=== PATIENT | female | born 1990 | race Hispanic/Latino ===

== ENCOUNTER 2017-07-23 19:20 | Emergency (ER) | payer SELFPAY ==
[2017-07-23] MEDS ORDERED: AZITHROMYCIN 250 MG TABLET PO ONE (19:59)
[2017-07-23] MEDS ORDERED: LIDOCAINE HCL-MPF 1% 2ML VIAL ONE (19:59)
[2017-07-23] MEDS ORDERED: FLUCONAZOLE 100 MG TAB ONE (19:59)
[2017-07-23] MEDS ORDERED: CEFTRIAXONE SODIUM 1 GM ONE (19:59)
[2017-07-23] MEDS ORDERED: ACETAMINOPHEN-CODEINE ELIXIR 5 ML UDCUP ONE (20:00)
[2017-07-23 20:11] LABS: APPEARANCE,URINE Clear (CLEAR); BILIRUBIN,URINE Negative (NEGATIVE); COLOR,URINE Yellow (YELLOW); GLUCOSE, URINE (UA) Negative (NEGATIVE); KETONES,URINE Negative (NEGATIVE); LEUKOCYTE ESTERASE ,URINE Negative (NEGATIVE); NITRATE,URINE Negative (NEGATIVE); OCCULT BLOOD,URINE Moderate (NEGATIVE); PROTEIN,URINE Negative (NEGATIVE); UROBILINOGEN,URINE 0.2 mg/dL (0.2-1.0)
[2017-07-23 20:26] LABS: BACTERIA,URINE Rare /HPF (None Seen); RBC,URINE None Seen /HPF (0-1); SQUAMOUS EPITHELIAL CELL,UR 0-2 /HPF (0-2); WBC,URINE 0-1 /HPF (0-1)
== END 2017-07-23 22:49 | disposition home or self-care (01) ==
LOC: EDH 19:20
DX: N76.0 Acute vaginitis (principal); N72 Inflammatory disease of cervix uteri; N94.89 Other specified conditions associated with female genital organs and menstrual cycle; Z98.890 Other specified postprocedural states
CPT/HCPCS: 76856; 81001; 87210; 87486; 87797; 96372; 99285; J0696; J3490

== ENCOUNTER 2019-02-23 16:32 | Observation (INO) | payer MEDICAID ==
[~2019-02-23] VITALS: Ht 167.6 cm; Wt 114.3 kg
[2019-02-23 17:36] VITALS: BP 123/59
== END 2019-02-23 18:04 | disposition home or self-care (01) ==
LOC: LDH 16:32
PROVIDERS: ADMIT Obstetrics & Gynecology; ATTEND Obstetrics & Gynecology
DX: O36.8931 Maternal care for other specified fetal problems, third trimester, fetus 1 (principal); Z3A.22 22 weeks gestation of pregnancy
CPT/HCPCS: G0378

== ENCOUNTER 2019-05-01 15:41 | Observation (INO) | payer MEDICAID ==
[~2019-05-01] VITALS: Ht 167.6 cm; Wt 117.0 kg
[2019-05-01 17:08] LABS: APPEARANCE,URINE Clear (CLEAR); BILIRUBIN,URINE Negative (NEGATIVE); COLOR,URINE Yellow (YELLOW); GLUCOSE, URINE (UA) Negative (NEGATIVE); KETONES,URINE Negative (NEGATIVE); LEUKOCYTE ESTERASE ,URINE Small (NEGATIVE); NITRATE,URINE Negative (NEGATIVE); OCCULT BLOOD,URINE Negative (NEGATIVE); PROTEIN,URINE Negative (NEGATIVE)
[2019-05-01 17:18] LABS: BACTERIA,URINE Moderate /HPF (None Seen); MUCUS,URINE Few LPF (None Seen); RBC,URINE 0-1 /HPF (0-1); SQUAMOUS EPITHELIAL CELL,UR Many /HPF (0-2)
[2019-05-01] MEDS ORDERED: PHARMACY COMMUNICATION MISC SCH (17:30)
[2019-05-01] MEDS ORDERED: COMPOUND PO MISCELLANEOUS 1 EACH MISC MISC PRN (17:45)
[2019-05-01] MEDS ORDERED: LIDOCAINE HCL 2% VISCOUS 30 ML, MAG HYDROX/AL HYDROX/SIMETH 30 ML, DICYCLOMINE HCL 20 MG PO SCH ×3 (17:45)
[2019-05-01 17:53] LABS: BASOPHILS % (AUTO) 0.1 % (0.0-5.0); EOSINOPHILS % (AUTO) 0.1 % (0.0-8.0); HEMATOCRIT 34.8 % (36-48); MEAN CORPUSCULAR HEMOGLOBIN 30.1 pg (27.0-33.0); MEAN CORPUSCULAR HGB CONC 33.3 g/dL (32.0-36.0); MEAN CORPUSCULAR VOLUME 90.2 fL (79-99); MONOCYTES % (AUTO) 5.2 % (3.0-13.0); NEUTROPHILS % (AUTO) 73.2 % (40.0-77.0); PLATELET COUNT (AUTO) 300 K/uL (130-400); RED BLOOD CELL COUNT(AUTO) 3.86 MIL/uL (4.00-5.50); RED CELL DISTRIBUTION WIDTH 12.1 % (11.0-15.5); WHITE BLOOD COUNT (AUTO) 8.4 K/uL (4.8-10.8)
[2019-05-01 18:05] LABS: CREATININE 0.5 mg/dL (0.5-1.5)
[2019-05-01 18:09] LABS: ALBUMIN 2.7 g/dL (3.5-5.0); BILIRUBIN,TOTAL 0.4 mg/dL (0.2-1.0); TOTAL PROTEIN, SERUM 6.8 g/dL (6.0-8.3)
[2019-05-01] MEDS ORDERED: LACTATED RINGERS 1000ML 1,000 ML IV SCH (21:00)
== END 2019-05-01 22:35 | disposition home or self-care (01) ==
LOC: LDH 15:41
PROVIDERS: ADMIT Obstetrics & Gynecology; ATTEND Obstetrics & Gynecology
DX: O26.893 Other specified pregnancy related conditions, third trimester (principal); R10.9 Unspecified abdominal pain; R42 Dizziness and giddiness; Z3A.31 31 weeks gestation of pregnancy
CPT/HCPCS: 36415; 76705; 80053; 81001; 82150; 83690; 85025; 96360; G0378 ×6; J7120; 96361

== ENCOUNTER 2019-06-16 22:38 | Inpatient (IN) | payer MEDICAID ==
[~2019-06-16] VITALS: Ht 167.6 cm; Wt 123.8 kg
[2019-06-16] MEDS ORDERED: LACTATED RINGERS 1000ML 1,000 ML IV SCH (23:00)
[2019-06-16 23:06] VITALS: BP 158/95
[2019-06-16 23:18] LABS: APPEARANCE,URINE Clear (CLEAR); BILIRUBIN,URINE Negative (NEGATIVE); COLOR,URINE Yellow (YELLOW); GLUCOSE, URINE (UA) Negative (NEGATIVE); KETONES,URINE Negative (NEGATIVE); LEUKOCYTE ESTERASE ,URINE Negative (NEGATIVE); NITRATE,URINE Negative (NEGATIVE); OCCULT BLOOD,URINE Negative (NEGATIVE); PH,URINE 5.5 (5.0-8.0); PROTEIN,URINE Negative (NEGATIVE)
[2019-06-17] MEDS ORDERED: LACTATED RINGERS 1000ML 1,000 ML IV PRN (00:05)
[2019-06-17] MEDS ORDERED: PREN1TAB80 PO (00:11)
[2019-06-17] MEDS ORDERED: ONDA4TAB4 PO (00:11)
[2019-06-17] MEDS ORDERED: MEPERIDINE-PF 50 MG/ML SYG IVP PRN (00:15)
[2019-06-17] MEDS ORDERED: PROMETHAZINE HCL 25 MG/ML 1ML AMPULE IM PRN ×3 (00:15→09:00)
[2019-06-17] MEDS ORDERED: LACTATED RINGERS 1000ML 1,000 ML IV ONE (00:22)
[2019-06-17] MEDS ORDERED: TERBUTALINE SULFATE VIAL 1MG/ML SQ ONE (00:22)
[2019-06-17 00:42] LABS: HEMATOCRIT 35.3 % (36-48); MEAN CORPUSCULAR HEMOGLOBIN 29.8 pg (27.0-33.0); MEAN CORPUSCULAR HGB CONC 33.1 g/dL (32.0-36.0); MEAN CORPUSCULAR VOLUME 90.1 fL (79-99); PLATELET COUNT (AUTO) 302 K/uL (130-400); RED BLOOD CELL COUNT(AUTO) 3.92 MIL/uL (4.00-5.50); RED CELL DISTRIBUTION WIDTH 12.8 % (11.0-15.5); WHITE BLOOD COUNT (AUTO) 10.8 K/uL (4.8-10.8)
[2019-06-17] MEDS ORDERED: CALDOLOR 800MG+NS 250ML 250 ML IV PRN (07:30)
[2019-06-17] MEDS ORDERED: DEXTROSE 5 %-0.45 % NACL 1,000 ML IV PRN ×2 (07:30→09:00)
[2019-06-17] MEDS ORDERED: OXYTOCIN-LR 20 UNITS/1000 ML 1,000 ML IV PRN ×2 (07:30→09:00)
[2019-06-17] MEDS ORDERED: MEPERIDINE-PF 75 MG/ML SYG IM PRN ×2 (07:30→09:00)
[2019-06-17] MEDS ORDERED: CEFAZOLIN SODIUM 1 GM VIAL IVP PRN (07:30)
[2019-06-17] MEDS ORDERED: SODIUM CHLORIDE 0.9% 10 ML VIAL IVP PRN ×2 (07:30→09:00)
[2019-06-17] MEDS ORDERED: CITRIC ACID/SODIUM CITRATE 30 ML UDCUP ONE (07:56)
[2019-06-17] MEDS ORDERED: DURAMORPH PF1 MG/ML 10ML AMP IV ONE (07:58)
[2019-06-17] MEDS ORDERED: CEFAZOLIN SODIUM 1 GM VIAL IVP ONE (08:10)
[2019-06-17] MEDS ORDERED: ONDANSETRON HCL 4 MG/2 ML VIAL ONE (08:27)
[2019-06-17 08:35] LABS: RAPID PLASMA REAGIN NONREACTIVE (NONREACTIVE)
[2019-06-17] MEDS ORDERED: PHENYLEPHRINE HCL 0.5% 15 ML NASAL SPRAY NASAL ONE (08:47)
[2019-06-17] MEDS ORDERED: PHENYLEPHRINE HCL 10 MG/ML 1ML VIAL IV ONE (08:48)
[2019-06-17 10:37] VITALS: BP 110/53
[2019-06-17] MEDS: LORATADINE 10 MG TABLET PO PRN (15:12)
[2019-06-17 16:26] VITALS: BP 114/58
[2019-06-17] MEDS: CALDOLOR 800MG+NS 250ML 250 ML IV SCH (16:35)
[2019-06-17 19:31] VITALS: BP 103/58
[2019-06-17] MEDS: LACTATED RINGERS 1000ML 1,000 ML IV SCH (20:15)
[2019-06-18] VITALS (7 sets, daily range): BP systolic 98–118; BP diastolic 45–63
[2019-06-18] MEDS: TERBUTALINE SULFATE VIAL 1MG/ML SQ SCH ×2 (00:15→00:56)
[2019-06-18] MEDS: CALDOLOR 800MG+NS 250ML 250 ML IV SCH (00:59)
[2019-06-18] MEDS: LACTATED RINGERS 1000ML 1,000 ML IV SCH ×2 (01:21→22:55)
[2019-06-18] MEDS: LORATADINE 10 MG TABLET PO PRN (04:34)
--- NOTE | 2019-06-18 04:34 | NUR ---
PT MED WITH LORATADINE FOR C/O ITCHING, NO REDNESS OR RASHES NOTED.
[2019-06-18] MEDS ORDERED: DIPH,PERTUSS(ACELL),TET VAC/PF 0.5 ML VIAL IM ONE (04:36)
[2019-06-18] MEDS: DIPH,PERTUSS(ACELL),TET VAC/PF 0.5 ML VIAL IM SCH (04:44)
--- NOTE | 2019-06-18 05:30 | NUR ---
PT. DENIED ITCHING.
--- NOTE | 2019-06-18 06:30 | NUR ---
WENT TO REMOVE DELGADO CATH BUT PT. REFUSED AT THIS TIME, SAID SHE WILL CALL BACK WHEN SHE'S DONE HER BABY. DAY SHIFT MADE AWARE OF PT'S REQUEST.
[2019-06-18 06:57] LABS: HEMATOCRIT 29.9 % (36-48); MEAN CORPUSCULAR HEMOGLOBIN 29.4 pg (27.0-33.0); MEAN CORPUSCULAR HGB CONC 32.1 g/dL (32.0-36.0); MEAN CORPUSCULAR VOLUME 91.7 fL (79-99); PLATELET COUNT (AUTO) 231 K/uL (130-400); RED BLOOD CELL COUNT(AUTO) 3.26 MIL/uL (4.00-5.50); RED CELL DISTRIBUTION WIDTH 13.1 % (11.0-15.5); WHITE BLOOD COUNT (AUTO) 9.1 K/uL (4.8-10.8)
[2019-06-18 07:13] LABS: HEPATITIS Bs ANTIGEN SCREEN P Negative (Negative)
[2019-06-18] MEDS ORDERED: ACETAMINOPHEN EXTRA STRENGTH 500 MG TABLET PO PRN (08:30)
[2019-06-18] MEDS ORDERED: BISACODYL 10 MG SUPP.RECT RC PRN (08:30)
[2019-06-18] MEDS ORDERED: HYDROCODONE/ACETAMINOPHEN 5/325 MG TAB PO PRN (08:30)
[2019-06-18] MEDS: SIMETHICONE 80 MG TAB.CHEW PO PRN ×3 (09:12→21:11)
[2019-06-18] MEDS: DOCUSATE SODIUM 100 MG CAP PO SCH ×2 (09:13→21:11)
[2019-06-18] MEDS: IBUPROFEN 800 MG TAB PO SCH ×2 (09:14→16:58)
--- NOTE | 2019-06-18 09:40 | NUR ---
DRESSING REMOVED, TELFA PAD APPLIED. PERICARE GIVEN. DELGADO CATHETER REMOVED WITH TIP INTACT. ABDOMINAL BINDER APPLIED. ASSISTED PATIENT OOB TO BEDSIDE CHAIR. NO DIZZINESS REPORTED. CALL LIGHT LEFT IN REACH. ADVISED PATIENT TO CALL WITH ANY NEEDS OR CONCERNS.
[2019-06-18] MEDS: ACETAMINOPHEN-CODEINE 300/30MG TAB PO PRN ×2 (12:47→22:59)
--- NOTE | 2019-06-18 21:00 | NUR ---
PT. AMBULATED IN HALLWAY FOR 35 MINUTES, WELL TOLERATED. Addendum: 06/18/19 at 2248 by AUSTEN WILLIAMSON RN RN Amended: Links added.
[2019-06-18] MEDS ORDERED: LANOLIN 30GM OINTMENT TP PRN (22:30)
[2019-06-19] MEDS: DIPH,PERTUSS(ACELL),TET VAC/PF 0.5 ML VIAL IM SCH (00:48)
[2019-06-19] MEDS: LACTATED RINGERS 1000ML 1,000 ML IV SCH (00:48)
[2019-06-19] MEDS: TERBUTALINE SULFATE VIAL 1MG/ML SQ SCH (00:49)
[2019-06-19] MEDS: IBUPROFEN 800 MG TAB PO SCH ×2 (01:20→09:06)
[2019-06-19 03:56] VITALS: BP 118/84
[2019-06-19 07:30] VITALS: BP 124/80
[2019-06-19] MEDS: SIMETHICONE 80 MG TAB.CHEW PO PRN (09:04)
[2019-06-19] MEDS: DOCUSATE SODIUM 100 MG CAP PO SCH (09:05)
[2019-06-19 11:58] VITALS: BP 114/54
[2019-06-19] MEDS ORDERED: IBUP-2077 PO (12:07)
[2019-06-19] MEDS ORDERED: ACET1TAB25 PO (12:08)
[2019-06-19] MEDS ORDERED: DOCU-116 PO (12:08)
--- NOTE | 2019-06-19 12:24 | NUR ---
verbal and written discharge instructions given, informed of the follow up appointment, prescription given, all questions answered, informed to call the doctor for any concerns, pt voiced understanding to all things discussed. Addendum: 06/19/19 at 1224 by HOLDEN WHEELER RN Amended: Links added.
--- NOTE | 2019-06-19 13:20 | NUR ---
pt is dismissed in stable condition, brought to private car via wheelchair. Addendum: 06/19/19 at 1326 by HOLDEN WHEELER RN Amended: Links added.
== END 2019-06-19 13:20 | disposition home or self-care (01) | DRG 540 ==
LOC: EDH 22:38 → LDH 22:39 → OBSVTOIN 22:39 → WSH 06-17 10:35
PROVIDERS: ADMIT Obstetrics & Gynecology; ATTEND Obstetrics & Gynecology
PROC: 10D00Z1 Extraction of Products of Conception, Low, Open Approach (ICD-10-PCS; principal; 2019-06-17 08:00)
PROC: 3E0234Z Introduction of Serum, Toxoid and Vaccine into Muscle, Percutaneous Approach (ICD-10-PCS; 2019-06-18)
DX: O34.211 Maternal care for low transverse scar from previous cesarean delivery (principal); E66.9 Obesity, unspecified; D25.9 Leiomyoma of uterus, unspecified; O99.214 Obesity complicating childbirth; O77.0 Labor and delivery complicated by meconium in amniotic fluid; O34.13 Maternal care for benign tumor of corpus uteri, third trimester; Z3A.38 38 weeks gestation of pregnancy; Z37.0 Single live birth; Z23 Encounter for immunization
CPT/HCPCS: 36415; 59510; 81003; 85027; 86592; 86701; 86850; 86900; 86901; 87340; 87390; 90715; A4344; G0378; J0690; J1741; J2274; J2370; J2405; J2590; J3105; J7120

== ENCOUNTER 2023-04-10 14:39 | Emergency (ER) | payer MEDICAID, OTHER ==
[~2023-04-10] VITALS: Ht 157.5 cm; Wt 113.4 kg
[~2023-04-10 14:39] MED LIST: ACET-2079 PO; DOCU-116 PO; IBUP-2077 PO; ONDA4TAB4 PO; PREN1TAB80 PO
[2023-04-10 16:55] LABS: APPEARANCE,URINE CLEAR (CLEAR); BILIRUBIN,URINE NEGATIVE (NEGATIVE); COLOR,URINE LIGHT-YELLOW (YELLOW); GLUCOSE, URINE (UA) NEGATIVE (NEGATIVE); KETONES,URINE NEGATIVE (NEGATIVE); LEUKOCYTE ESTERASE ,URINE 500 Leu/uL (NEGATIVE); NITRATE,URINE NEGATIVE (NEGATIVE); OCCULT BLOOD,URINE NEGATIVE (NEGATIVE); PROTEIN,URINE NEGATIVE (NEGATIVE); UROBILINOGEN,URINE 0.2 mg/dL (0.2-1.0)
[2023-04-10 16:57] LABS: ADD UA MICROSCOPIC YES
[2023-04-10 16:59] LABS: BACTERIA,URINE RARE /HPF (None Seen); MUCUS,URINE RARE LPF (None Seen); RBC,URINE 0-1 /HPF (0-1); SQUAMOUS EPITHELIAL CELL,UR RARE /HPF (0-2); WBC,URINE 51-100 /HPF (0-1)
[2023-04-10 17:04] LABS: BASOPHILS # (AUTO) 0.06 K/uL (0.00-0.20); BASOPHILS % (AUTO) 0.6 % (0.0-5.0); EOSINOPHILS % (AUTO) 0.9 % (0.0-8.0); HEMATOCRIT 35.5 % (36-48); IMMATURE GRANULOCYTE ABSOLUTE 0.03 K/uL (0-1); LYMPHOCYTES # (AUTO) 2.4 K/uL (1.0-4.8); LYMPHOCYTES % (AUTO) 22.8 % (21.0-51.0); MEAN CORPUSCULAR HEMOGLOBIN 29.1 pg (27.0-33.0); MEAN CORPUSCULAR HGB CONC 32.7 g/dL (32.0-36.0); MONOCYTES # (AUTO) 0.6 K/uL (0.1-1.0); MONOCYTES % (AUTO) 5.7 % (3.0-13.0); NEUTROPHILS # (AUTO) 7.4 K/uL (1.8-7.7); NEUTROPHILS % (AUTO) 69.7 % (40.0-77.0); PLATELET COUNT (AUTO) 348 K/uL (130-400); RED BLOOD CELL COUNT(AUTO) 3.99 MIL/uL (4.00-5.50); RED CELL DISTRIBUTION WIDTH 12.8 % (11.0-15.5); WHITE BLOOD COUNT (AUTO) 10.6 K/uL (4.8-10.8)
[2023-04-10 17:19] LABS: CREATININE 0.7 mg/dL (0.5-1.5); POTASSIUM 3.9 mmol/L (3.5-5.1)
[2023-04-10 17:23] LABS: ALBUMIN 3.4 g/dL (3.5-5.0); BILIRUBIN,TOTAL 0.4 mg/dL (0.2-1.0); TOTAL PROTEIN, SERUM 7.1 g/dL (6.0-8.3)
[2023-04-10 17:35] VITALS: BP 137/97; PULSE 90; RESP 18; O2SAT 100
[2023-04-10] MEDS ORDERED: NITR100C PO (17:53)
== END 2023-04-10 18:02 | disposition home or self-care (01) ==
LOC: EDH 14:39
DX: R30.0 Dysuria (principal); N39.0 Urinary tract infection, site not specified; E03.9 Hypothyroidism, unspecified; Z79.899 Other long term (current) drug therapy; Z88.8 Allergy status to other drugs, medicaments and biological substances
CPT/HCPCS: 36415; 80053; 81001; 85025; 87077; 87088; 87186